=== PATIENT | male | born 1940 | race Caucasian/White ===

== ENCOUNTER → 2016-08-14 | Outpatient (CLI) | payer OTHER, BC ==
[~2016-08-14] MED LIST: ASPI325T39 PO; ATOR-24 PO; BENA10TA10 PO; GLUCTAB7 PO; OMEGCAP2 PO; TRAZ50TA35 PO
[2016-08-14 13:15] LABS: ALT/SGPT 27 U/L (12-78); AST/SGOT 15 U/L (15-37); BLOOD UREA NITROGEN 21 mg/dl (7-18); BUN/CREATININE RATIO 17.3 (10-20); CALCIUM 8.7 mg/dl (8.5-10.1); CARBON DIOXIDE 30 mmol/L (21-32); CHLORIDE 105 mmol/L (98-107); CHOLESTEROL 157 mg/dl (0-200); GLUCOSE 104 mg/dl (70-99); POTASSIUM 3.7 mmol/L (3.5-5.1); SODIUM 141 mmol/L (136-145)
[2016-08-14 13:18] LABS: ALKALINE PHOSPHATASE 93 U/L (45-117); CHOLESTEROL/HDL RATIO 2.3; HDL CHOLESTEROL 69 mg/dl; LDL CHOLESTEROL CALCULATED 73 mg/dl; TRIGLYCERIDES 76 mg/dl (0-150); URIC ACID 7.2 mg/dl (2.6-7.2); VERY LOW DENSITY LIPOPROT CALC 15 mg/dl
[2016-08-14 13:46] LABS: ESTIMATED AVERAGE GLUCOSE 105 mg/dl; HA1C FLAG Normal (Normal)
== END | disposition home or self-care (01) ==
LOC: C.LABPVFM 07:37
PROVIDERS: ATTEND Family Medicine
DX: I10 Essential (primary) hypertension (principal); E78.5 Hyperlipidemia, unspecified; M10.9 Gout, unspecified; R73.01 Impaired fasting glucose

== ENCOUNTER → 2017-02-20 | Outpatient (CLI) | payer OTHER, BC ==
[2017-02-20 12:58] LABS: ALT/SGPT 29 U/L (12-78); BLOOD UREA NITROGEN 24 mg/dl (7-18); BUN/CREATININE RATIO 22.1 (10-20); CALCIUM 9.4 mg/dl (8.5-10.1); CARBON DIOXIDE 27 mmol/L (21-32); CHLORIDE 109 mmol/L (98-107); CHOLESTEROL 159 mg/dl (0-200); GLUCOSE 109 mg/dl (70-99); POTASSIUM 3.9 mmol/L (3.5-5.1); SODIUM 141 mmol/L (136-145); TRIGLYCERIDES 107 mg/dl (0-150); VERY LOW DENSITY LIPOPROT CALC 21 mg/dl
[2017-02-20 13:01] LABS: ALB/GLOB RATIO 0.9 (0.9-2); ALKALINE PHOSPHATASE 98 U/L (45-117); AST/SGOT 21 U/L (15-37); CHOLESTEROL/HDL RATIO 2.8; HDL CHOLESTEROL 57 mg/dl; LDL CHOLESTEROL CALCULATED 81 mg/dl
== END | disposition home or self-care (01) ==
LOC: C.LABPVFM 07:38
PROVIDERS: ATTEND Family Medicine
DX: I10 Essential (primary) hypertension (principal); E78.5 Hyperlipidemia, unspecified; M10.9 Gout, unspecified

== ENCOUNTER 2023-10-19 07:47 | Inpatient (IN) ==
[2023-10-19 08:37] LABS: Bacteria Urine Automated 2+ (None Seen); Epithelial Cell Urine Auto 0-2 /hpf (0-2); WBC Urine Automated >50 /hpf (0-5)
[2023-10-19 08:37] LABS: Albumin Globulin Ratio 1.6 (0.9-2); Albumin Level 4.2 gm/dl (3.4-5.0); BUN Creatinine Ratio 26.5 (10-20); Basophils # (auto) 0.06 K/uL (0.00-0.20); Basophils % (auto) 0.3 %; Bilirubin,Total 1.1 mg/dl (0.2-1.0); Creatinine Clr Calc Pharmacy 67.9 ml/min; Est GFR (African American) 83.5 ml/min; Globulin 2.6 gm/dl (2.5-4.0); Hematocrit (blood only) 42.9 % (42.0-52.0); Hemoglobin 14.1 g/dl (14.0-18.0); Immature Granulocytes # (auto) 0.18 K/uL (0.01-0.20); Lymphocytes # (auto) 0.43 K/uL (1.20-3.40); Lymphocytes % (auto) 2.5 %; Magnesium 1.5 mg/dl (1.7-2.4); Mean Corpuscular Hemoglobin 29.5 pg (25.0-34.0); Mean Corpuscular Hgb Conc 32.9 g/dL (32.0-36.0); Mean Corpuscular Volume 89.7 fL (80.0-100.0); Mean Platelet Volume 8.7 fL (9.4-12.4); Monocytes # (auto) 1.66 K/uL (0.11-0.59); Monocytes % (auto) 9.5 %; Neutrophils # (auto) 15.12 K/uL (1.40-6.50); Neutrophils % (auto) 86.7 %; Platelet Count 165 K/uL (130-400); Potassium 3.7 mmol/L (3.5-5.1); RDW Coefficient of Variation 14.6 % (11.5-14.5); RDW Standard Deviation 48.2 fL (36.4-46.3); Red Blood Count 4.78 M/uL (4.70-6.10); Total Protein 6.8 gm/dl (6.0-8.3); White Blood Count 17.45 K/ul (4.8-10.8)
--- NOTE | 2023-10-19 08:37 | Emergency Department Note ---
Impression & Plan Acute UTI, Leukocytosis, Prostatic mass, Kidney lesion ED Provider Note CHIEF COMPLAINT: Urinary symptoms HISTORY OF PRESENT ILLNESS: This 83-year-old male patient with past medical history of syncope, carotid bruit, impaired glucose, hypertension, hyperlipidemia and elevated PSA presents to the emergency department with complaints of difficulty urinating. The patient states it is somewhat uncomfortable to urinate and he is urinating frequently. He denies any burning or significant pain. He denies any blood in the urine. He has had no fevers, vomiting or diarrhea. Patient denies anything like this happening in the past. He does not believe he seen urology but does follow with a primary care physician regularly. Patient currently denies any significant abdominal pain or pain in the back. REVIEW OF SYSTEMS: A review of systems was performed with positives and pertinent negatives listed in the history of present illness. 10 systems were reviewed and are otherwise negative. ALLERGIES: see below MEDICATIONS: see below PMH: see below SOCIAL HISTORY: see below DDx: UTI, kidney stone, prostatitis, dehydration, diverticulitis, appendicitis among others PHYSICAL EXAM: Vital signs reviewed. General: Well-appearing 83-year-old male, sitting up at the bedside, in no significant distress. HEENT: No scleral icterus, PERRLA, neck supple. moist mucous membranes Cardiovascular: Regular rate and rhythm, no extra sounds. Pulmonary: Clear to auscultation bilaterally, normal work of breathing. Abdomen: Soft, nontender, nondistended, positive bowel sounds. Musculoskeletal: Atraumatic, minimal peripheral edema. Neurologic: Patient awake alert and oriented x 3, speech is clear Skin: Warm, dry, no rash EMERGENCY DEPARTMENT COURSE/MDM: this patient was evaluated and appeared to be in no significant distress. Patient was sitting up at the bedside and ambulatory to the bathroom. He was able to produce a small amount of urine which was sent to the lab for testing. IV access was obtained and laboratory work was drawn. A bladder scan was performed for approximately 50 cc of urine. IV fluids were initiated and the CT scan of the abdomen pelvis was ordered. Laboratory work reveals an elevated WBC, UA is indicative of infection. 2 g of IV ceftriaxone were initiated. Patient was started on IV hydration normal saline solution at 125 cc/h. Vital signs have remained stable and he is afebrile. CT imaging reveals no evidence of obstructive pathology however there is evidence of a 1 cm lesion on the left kidney and 2 cm lesion of the prostate. Patient will be evaluated by the hospitalist service due to UTI, WBC elevation. He was made aware of the findings and the plan and agrees. MONITORING: An order for cardiac monitoring was placed and the patient is noted to be in a NSR at 100 beats per minute. RADIOLOGY: Chest x-ray to my interpretation reveals cardiomegaly without evidence of congestive heart failure. CT imaging of the abdomen pelvis per radiology: IMPRESSION: 1. Prostatomegaly with evidence of chronic bladder outlet obstruction. Correlate with urinalysis to exclude cystitis. 2. There is an equivocal 2 cm lesion involving the left prostate peripheral zone at the level of the mid gland to apex. Correlation with PSA level recommended. 3. 11 mm lesion of the posterior interpolar right kidney. Correlation with follow-up nonemergent renal ultrasound recommended in order to exclude renal cell carcinoma. 4. Colonic diverticulosis. 5. Additional findings as above. EKG:To my interpretation reveals a sinus tachycardia at 102 bpm, right bundle branch block. QTc 490. No PVC, no PAC. Repolarization abnormality. DISPOSITION: Admission Past Med/Surg History Medical History Multiple fractures of ribs of right side Shingles right eye brown to top of his head-nerves were impacted. Sensorineural hearing loss (SNHL) of both ears Shortness of breath on exertion Diverticulosis of colon Surgical History Hx of LASIK History of repair of left rotator cuff History of repair of right rotator cuff History of tooth extraction Hx of colonoscopy Family History Mother COPD (chronic obstructive pulmonary disease) Brother Coronary heart disease COPD (chronic obstructive pulmonary disease) Uncle Cancer Father Prostate cancer Hearing loss Hypertension Other Family history non-contributory No family history of adverse response to anesthesia No family history of bleeding disorder Denies family history of Ovarian cancer Myocardial infarction Breast cancer Colorectal cancer Social History Smoking Status: Never smoker Second Hand Exposure: Yes (in [employer]); Do You Dip or Chew Tobacco: No; Hx Alcohol Use: Yes Alcohol type: beer Alcohol Intake Frequency: Monthly or Less Hx Substance Use: No Preferred Language: Upper Sorbian Communication Ability: Effective Visual Impairment: No Limitations Hearing Ability: Use of Hearing Aid 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 Seatbelt Use: always Sunscreen Use: No Assistive Devices: Hearing Aid - Bilateral Allergies Allergies Allergy/AdvReac Type Severity Reaction Status Date / Time No Known Drug Allergies Allergy Unknown . Verified 10/19/23 09:51 Home Meds Home Medications Medication Instructions Recorded Confirmed aspirin 81 mg tablet,delayed 81 mg PO QAM 02/27/20 10/19/23 release multivitamin 1 tab PO QAM 09/24/23 10/19/23 tamsulosin 0.4 mg capsule 0.4 mg PO QAM 10/19/23 10/19/23 Previous Rx's Medication Instructions Recorded allopurinol 100 mg tablet 100 mg PO QAM #90 tabs 05/02/23 atorvastatin 40 mg tablet 40 mg PO QPM #90 tabs 06/29/23 gabapentin 300 mg capsule 300 mg PO TID PRN neuropathy #90 10/15/23 caps benazepril 10 mg tablet 10 mg PO BID #180 tabs 10/17/23 hydrochlorothiazide 12.5 mg tablet 12.5 mg PO DAILY PRN hypertension 10/17/23 #90 tabs Results & Data (ED) Vital Signs Vital Signs - 24 hr 10/19/23 07:52 10/19/23 07:55 10/19/23 08:30 Temperature 36.8 C Temperature Source Oral Pulse Rate 103 H 103 H 100 H Respiratory Rate 18 23 Respiratory Effort / Characteristics Non-Labored Spontaneous Respiratory Depth Normal Respiratory Pattern Regular Blood Pressure 128/98 99/71 L Blood Pressure Mean 108 80 Pulse Oximetry 92 Oxygen Delivery Method Room Air Sepsis Recent Fever Within 48 Hours No Sepsis New/Unexplained Change in Mental Status No Sepsis Action Taken by Nursing No Action Required 10/19/23 09:37 Temperature Temperature Source Pulse Rate 94 H Respiratory Rate 18 Respiratory Effort / Characteristics Respiratory Depth Respiratory Pattern Blood Pressure 109/73 Blood Pressure Mean 85 Pulse Oximetry 94 Oxygen Delivery Method Sepsis Recent Fever Within 48 Hours Sepsis New/Unexplained Change in Mental Status Sepsis Action Taken by Custodial Medications Current Medication List: was personally reviewed by me Laboratory Data Attestation: I reviewed the patient's lab results. 10/20/23 05:53 10/20/23 05:53 Lab Results 10/19/23 10/19/23 10/19/23 Range/Units 08:00 08:15 10:23 WBC 17.45 H (4.8-10.8) K/ul RBC 4.78 (4.70-6.10) M/uL Hgb 14.1 (14.0-18.0) g/dl Hct 42.9 (42.0-52.0) % MCV 89.7 (80.0-100.0) fL MCH 29.5 (25.0-34.0) pg MCHC 32.9 (32.0-36.0) g/dL RDW Std Deviation 48.2 H (36.4-46.3) fL RDW Coeff of Sharifa 14.6 H (11.5-14.5) % Plt Count 165 (130-400) K/uL MPV 8.7 L (9.4-12.4) fL Immature Gran % (Auto) 1.0 % Neut % (Auto) 86.7 % Lymph % (Auto) 2.5 % Bell % (Auto) 9.5 % Eos % (Auto) 0.0 % Baso % (Auto) 0.3 % Neut # (Auto) 15.12 H (1.40-6.50) K/uL Lymph # (Auto) 0.43 L (1.20-3.40) K/uL Bell # (Auto) 1.66 H (0.11-0.59) K/uL Eos # (Auto) 0.00 (0.00-0.50) K/uL Baso # (Auto) 0.06 (0.00-0.20) K/uL Immature Gran # (Auto) 0.18 (0.01-0.20) K/uL Sodium 141 (136-145) mmol/L Potassium 3.7 (3.5-5.1) mmol/L Chloride 109 H (98-107) mmol/L Carbon Dioxide 24 (21-32) mmol/L Anion Gap 8 (3-11) BUN 26 H (6-23) mg/dl Creatinine 0.98 (0.6-1.4) mg/dl Est Cr Clr Drug Dosing 67.9 ml/min Est GFR ( Amer) 83.5 ml/min Est GFR (Non-Af Amer) 72.0 ml/min BUN/Creatinine Ratio 26.5 H (10-20) Glucose 134 H (70-99(Fasting)) mg/dl Lactate 2.5 H* (0.4-2.0) mmol/L Calcium 9.0 (8.6-10.3) mg/dl Magnesium 1.5 L (1.7-2.4) mg/dl Total Bilirubin 1.1 H (0.2-1.0) mg/dl AST 23 (13-39) U/L ALT 32 (7-52) U/L Alkaline Phosphatase 103 (34-104) U/L Total Protein 6.8 (6.0-8.3) gm/dl Albumin 4.2 (3.4-5.0) gm/dl Globulin 2.6 (2.5-4.0) gm/dl Albumin/Globulin Ratio 1.6 (0.9-2) TSH 0.717 (0.300-4.500) uIu/ml Urine Color Yellow Urine Appearance Cloudy A (Clear) Urine pH 5.5 (4.5-7.5) Ur Specific Bath 1.024 (1.000-1.030) Urine Protein 1+ H (Negative) Urine Glucose (UA) Negative (Negative) Urine Ketones Trace H (Negative) Urine Blood 2+ H (Negative) Urine Nitrite Negative (Negative) Urine Bilirubin Negative (Negative) Urine Urobilinogen Negative (Negative) Ur Leukocyte Esterase 3+ H (Negative) Urine WBC (Auto) >50 H (0-5) /hpf Urine RBC (Auto) 11-20 H (0-2) /hpf U Hyaline Cast (Auto) 3-5 H (0-2) /lpf U Epithel Cells (Auto) 0-2 (0-2) /hpf Urine Bacteria (Auto) 2+ H (None Seen) Administered Medications Atorvastatin Calcium (Atorvastatin 40 Mg Tab) 40 mg PO QPM HUGO Stop: 11/18/23 20:59 Last Admin: 10/19/23 21:01 Dose: 40 mg Documented By: SANDRA Enoxaparin Sodium (Enoxaparin Inj 40 Mg/0.4 Ml Syr) 40 mg SQ Q24H HUGO Stop: 11/18/23 20:59 Last Admin: 10/19/23 21:01 Dose: 40 mg Documented By: SANDRA Gabapentin (Gabapentin 300 Mg Cap) 300 mg PO TID PRN PRN Reason: neuropathy Stop: 11/18/23 13:52 Last Admin: 10/19/23 22:40 Dose: 300 mg Documented By: SANDRA Discontinued Medications Ceftriaxone Sodium (Rocephin) 2,000 mg in 50 mls @ 100 mls/hr IV NOW STA Stop: 10/19/23 09:40 Last Infusion: 10/19/23 09:42 Dose: Infused Documented By: Admin: 10/19/23 09:20 Dose: 100 mls/hr Documented By: Sodium Chloride (Nss) 1,000 mls @ 125 mls/hr IV .Q8H HUGO Stop: 11/18/23 09:14 Last Infusion: 10/19/23 18:07 Dose: Infused Documented By: Infusion: 10/19/23 12:44 Dose: 125 mls/hr Documented By: Infusion: 10/19/23 10:36 Dose: 0 mls/hr Documented By: Admin: 10/19/23 09:39 Dose: 125 mls/hr Documented By: Magnesium Sulfate/Dextrose (Magnesium Sulfate / D5w) 1 gm in 100 mls @ 200 mls/hr IV Q30M HUGO Stop: 10/19/23 10:17 Last Infusion: 10/19/23 11:05 Dose: Infused Documented By: Admin: 10/19/23 10:12 Dose: 200 mls/hr Documented By: Infusion: 10/19/23 10:11 Dose: Infused Documented By: Admin: 10/19/23 09:41 Dose: 200 mls/hr Documented By: Sodium Chloride (Nss) 1,000 mls @ 999 mls/hr IV .Q1H1M ONE Stop: 10/19/23 11:11 Last Infusion: 10/19/23 11:37 Dose: Infused Documented By: Admin: 10/19/23 10:36 Dose: 999 mls/hr Documented By: Sodium Chloride (Nss) 250 mls @ 999 mls/hr IV .Q16M ONE Stop: 10/19/23 10:55 Last Infusion: 10/19/23 11:53 Dose: Infused Documented By: Admin: 10/19/23 11:37 Dose: 999 mls/hr Documented By: LELA Magnesium Sulfate/Dextrose (Magnesium Sulfate / D5w) 1 gm in 100 mls @ 50 mls/hr IV Q2H HUGO Stop: 10/19/23 16:59 Last Infusion: 10/19/23 18:00 Dose: Infused Documented By: Admin: 10/19/23 15:47 Dose: 50 mls/hr Documented By: Infusion: 10/19/23 15:47 Dose: Infused Documented By: Admin: 10/19/23 13:44 Dose: 50 mls/hr Documented By: Infusion: 10/19/23 13:43 Dose: Infused Documented By: Admin: 10/19/23 11:24 Dose: 50 mls/hr Documented By: LELA Parenteral Electrolytes (Plasma-Lyte A Ph 7.4) 1,000 mls @ 999 mls/hr IV .Q1H1M ONE Stop: 10/19/23 17:30 Last Infusion: 10/19/23 21:02 Dose: Infused Documented By: Admin: 10/19/23 18:00 Dose: 999 mls/hr Documented By: ROMAIN Ioversol (Optiray 320 100ml) 94 ml IV ONCE ONE Stop: 10/19/23 09:10 Last Admin: 10/19/23 09:09 Dose: 94 ml Documented By: SEBASTIEN Potassium Chloride (Potassium Chloride Crtab 20 Meq Tabcr) 40 meq PO NOW STA Stop: 10/19/23 10:45 Last Admin: 10/19/23 11:21 Dose: 40 meq Documented By: LELA Tamsulosin HCl (Tamsulosin Hcl 0.4 Mg Cap) 0.4 mg PO NOW ONE Stop: 10/19/23 10:37 Last Admin: 10/19/23 11:21 Dose: 0.4 mg Documented By: LELA Imaging Data Radiologist's Impression: Chest X-Ray 10/19/23 08:14 XR chest 1V portable HISTORY: 83 years-old Male weakness acute weakness COMPARISON: 07/23/2020 TECHNIQUE: AP view of the chest FINDINGS: Cardiomediastinal and hilar silhouettes are unchanged. Mild subsegmental bibasilar densities. There is no pneumothorax, pleural effusion or overt pulmonary edema. Degenerative changes of the shoulders and spine. IMPRESSION: 1. Cardiomegaly without acute process. 2. Mild bibasilar atelectasis. ACT 112: Negative or not required by law. The above report was generated using voice recognition software. It may contain grammatical, syntax or spelling errors. Electronically signed by: Alfa Bright M.D. 10/19/2023 9:07 AM Abdomen/Pelvis CT 10/19/23 08:[address] WITH IV CONTRAST CT DOSE: 1390.32 mGy.cm HISTORY: Acute generalized abdominal pain with possible urinary tract infection. urinary sx , unable to void, bladder empty TECHNIQUE: Multiaxial CT images of the abdomen and pelvis were performed following the IV administration of 94 cc of Optiray, A dose lowering technique was utilized adhering to the principles of ALARA. COMPARISON STUDY: 12/23/2021 FINDINGS: Extensive coronary artery calcifications with cardiomegaly. Bibasilar densities suggest atelectasis versus scarring. No free air. Unremarkable spleen, moderately atrophic pancreas and left adrenal gland. Possible side branch IPMN of the pancreatic body on image 144 measures 8 mm. Coarse calcifications measuring up to approximately 2 cm again noted within the region of the right adrenal gland which are unchanged and likely benign. Unremarkable liver. Patent portal vein. Gallbladder is within normal limits. Scattered hypodense foci of the kidneys suggestive of cysts, several which are too small to characterize. There is an indeterminate 11 mm lesion of the posterior interpolar right kidney on image 157 series 3. No hydronephrosis. Decompressed urinary bladder with circumferential wall thickening and perivesicular stranding. Increased enhancement is noted within the region of the urinary bladder trigone. Heterogeneous prostatomegaly with possible 2.1 cm lesion within the left peripheral zone at the mid gland to apex. Mild nonspecific stranding within the adjacent left hemipelvis.. Atherosclerosis of the aorta and branch vessels. There is no lymphadenopathy identified. Tiny hiatal hernia. No bowel obstruction. Trace perirectal stranding. Colonic diverticulosis. No CT evidence of acute appendicitis. Surgical clips of the scrotum. No acute fracture. IMPRESSION: 1. Prostatomegaly with evidence of chronic bladder outlet obstruction. Correlate with urinalysis to exclude cystitis. 2. There is an equivocal 2 cm lesion involving the left prostate peripheral zone at the level of the mid gland to apex. Correlation with PSA level recommended. 3. 11 mm lesion of the posterior interpolar right kidney. Correlation with follow-up nonemergent renal ultrasound recommended in order to exclude renal cell carcinoma. 4. Colonic diverticulosis. 5. Additional findings as above. ACT 112: Positive. There are findings on this exam that require communication between the performing entity and the patient following Patient Test Result Information Act ([place] Act 112) guidelines. The above report was generated using voice recognition software. It may contain grammatical, syntax or spelling errors. Electronically signed by: Alfa Bright M.D. 10/19/2023 9:50 AM Discharge Plan Visit Data Chief Complaint: Urinary Symptoms ED Provider: Brooke Omer Discharge Problem: Acute UTI, Leukocytosis, Prostatic mass, Kidney lesion Patient Disposition: Admitted As Inpatient Discharge Instructions Interventions: ED Discharge Assessment Last Done: 10/19/23 13:52 Discharge Problem: Leukocytosis Qualifiers: Leukocytosis type: unspecified Qualified Code(s): D72.829 - Elevated white blood cell count, unspecified
[2023-10-19 08:51] LABS: Thyroid Stimulating Hormone 0.717 uIu/ml (0.300-4.500)
--- NOTE | 2023-10-19 09:08 | XRay Report ---
XR chest 1V portable HISTORY: 83 years-old Male weakness acute weakness COMPARISON: 07/23/2020 TECHNIQUE: AP view of the chest FINDINGS: Cardiomediastinal and hilar silhouettes are unchanged. Mild subsegmental bibasilar densities. There i s no pneumothorax, pleural effusion or overt pulmonary edema. Degenerative changes of the shoulders a nd spine. IMPRESSION: 1. Cardiomegaly without acute process. 2. Mild bibasilar atelectasis. ACT 112: Negative or not required by law. The above report was generated using voice recognition software. It may contain grammatical, syntax o r spelling errors. Electronically signed by: Alfa Bright M.D. 10/19/2023 9:07 AM
[2023-10-19] MEDS: OPTIRAY 320 100ml IV ONE (09:09)
[2023-10-19 09:10] LABS: Bilirubin Urine Negative (Negative); Blood Urine 2+ (Negative); Color Urine Yellow; Glucose Urine UA Negative (Negative); Ketones Urine Trace (Negative); Leukocyte Esterase Urine 3+ (Negative); Nitrite Urine Negative (Negative); Protein Urine 1+ (Negative); Specific Gravity Urine 1.024 (1.000-1.030); Urobilinogen Urine Negative (Negative); pH Urine 5.5 (4.5-7.5)
[2023-10-19 09:12] LABS: Appearance Urine Cloudy (Clear)
[2023-10-19] MEDS: cefTRIAXone SODIUM 2,000 MG/50 ML BAG IV STA (09:20)
[2023-10-19] MEDS: SODIUM CHLORIDE 0.9% 1,000 ML IV SCH (09:39)
[2023-10-19] MEDS: MAGNESIUM SULFATE / D5W 1 GM/100 ML BAG IV SCH ×2 (09:41→11:24)
--- NOTE | 2023-10-19 09:52 | CT Scan Report ---
ABDOMEN AND PELVIS CT WITH IV CONTRAST CT DOSE: 1390.32 mGy.cm HISTORY: Acute generalized abdominal pain with possible urinary tract infection. urinary sx , unable to void, bladder empty TECHNIQUE: Multiaxial CT images of the abdomen and pelvis were performed following the IV administrat ion of 94 cc of Optiray, A dose lowering technique was utilized adhering to the principles of ALARA. COMPARISON STUDY: 12/23/2021 FINDINGS: Extensive coronary artery calcifications with cardiomegaly. Bibasilar densities suggest ate lectasis versus scarring. No free air. Unremarkable spleen, moderately atrophic pancreas and left adr enal gland. Possible side branch IPMN of the pancreatic body on image 144 measures 8 mm. Coarse calci fications measuring up to approximately 2 cm again noted within the region of the right adrenal gland which are unchanged and likely benign. Unremarkable liver. Patent portal vein. Gallbladder is within normal limits. Scattered hypodense foci of the kidneys suggestive of cysts, several which are too small to character ize. There is an indeterminate 11 mm lesion of the posterior interpolar right kidney on image 157 ser ies 3. No hydronephrosis. Decompressed urinary bladder with circumferential wall thickening and periv esicular stranding. Increased enhancement is noted within the region of the urinary bladder trigone. Heterogeneous prostatomegaly with possible 2.1 cm lesion within the left peripheral zone at the mid g land to apex. Mild nonspecific stranding within the adjacent left hemipelvis.. Atherosclerosis of the aorta and branch vessels. There is no lymphadenopathy identified. Tiny hiatal hernia. No bowel obstruction. Trace perirectal stranding. Colonic diverticulosis. No CT e vidence of acute appendicitis. Surgical clips of the scrotum. No acute fracture. IMPRESSION: 1. Prostatomegaly with evidence of chronic bladder outlet obstruction. Correlate with urinalysis to e xclude cystitis. 2. There is an equivocal 2 cm lesion involving the left prostate peripheral zone at the level of the mid gland to apex. Correlation with PSA level recommended. 3. 11 mm lesion of the posterior interpolar right kidney. Correlation with follow-up nonemergent mark l ultrasound recommended in order to exclude renal cell carcinoma. 4. Colonic diverticulosis. 5. Additional findings as above. ACT 112: Positive. There are findings on this exam that require communication between the performing entity and the patient following Patient Test Result [place] Act [place] Act 112) guidelines. The above report was generated using voice recognition software. It may contain grammatical, syntax o r spelling errors. Electronically signed by: Alfa Bright M.D. 10/19/2023 9:50 AM
--- NOTE | 2023-10-19 10:22 | History & Physical Report ---
Date of Service October 19, 2023 Assessment & Plan (1) Sepsis: Plan: -Admit to med/tele -Currently stable and non-toxic appearing. -Patient meets sepsis criteria with HR of 103 on arrival, WBC of 17k, and source being his UTI -Unfortunately the patient only received approximately 100 mL NSS between the time of ED arrival and admission >Patient did not have blood cultures or a lactate ordered in the ED >Patient had antibiotics given prior to blood cultures being ordered on admission -Lactate ordered at the time of admission is 2.5 -We will do the following on admission: >Will give the patient 2.25 mL NSS bolus to cover his sepsis bolus based on ideal body weight >Stat blood cultures ordered on admission -Continue ceftriaxone for now as he does not have a hx of resistant organisms -Will hold maintenance fluids following NSS bolus for now as he is non-toxic and hemodynamically stable >Will FU on repeat lactate in 2 hours -PRN tylenol for pain/fever -Will continue his home flomax and give his missed am dose now -Post void residual obtained at the time of admission was 50 cc, continue to monitor for urinary retention moving forward SQ lovenoc for DVT PPX -HH diet with 2 gm sodium restriction -AM CBC, BMP, mag, PT/INR (2) UTI (urinary tract infection): Plan: -Noted on UA today -S/P one dose of Ceftriaxone in the ED -Continue with q24 Ceftriaxone for now -Follow urine/blood cultures (3) Abnormal CT of the abdomen: Plan: -CT of the abd/pelvis w/IV con today noted 2 abnormalities: 1) an equivocal 2 cm lesion involving the left prostate peripheral zone 2) 11 mm lesion of the posterior interpolar right kidney. -Patient denies a previous hx of these findings -Please ensure patient has outpatient Urology referral prior to discharge (4) Hypomagnesemia: Plan: -Noted to be 1.5 today -Potassium is 3.7 -Likely due to HCTZ use -Will give 3 bags of 1gm IV mag-sulfate and 40 meq PO KCL on admission -Monitor daily electrolytes -Monitor on tele for now (5) Hypertension: Plan: -Currently stable -Will hold his HCTZ and Benazepril for now with soft BP's on arrival Plan The patient was discussed with Dr. Blanton at the time of the admission History of Present Illness Chief Complaint: Urinary symptoms Primary Care Provider: Byron Meraz DO Vu is an 83 year old male with a PMH significant for hypertension, hyp ercholesterolemia,RBBB, vasovagal syncope, postherpetic neuralgia, Gout, and and BPH who presented to the [facility] ED on 10/19/23 with complaints of urinary frequency/urgency, abdominal pain and increased confusion. On arrival to the ED he was noted to be mildly hypotensive at 99/71 and tachycardic at 103 but otherwise stable. Labs were significant for a leukocytosis of 17 with neutrophil predominance of 15, BUN of 26, chloride of 109, mag of 1.5, total bili of 1.1, and UA consistent with infection. Chest xray was read as negative for acute findings. CT of the abd/pelvis w/IN con was read as "1. Prostatomegaly with evidence of chronic bladder outlet obstruction. Correlate with urinalysis to exclude cystitis. 2. There is an equivocal 2 cm lesion involving the left prostate peripheral zone at the level of the mid gland to apex. Correlation with PSA level recommended. 3. 11 mm lesion of the posterior interpolar right kidney. Correlation with follow-up nonemergent renal ultrasound recommended in order to exclude renal cell carcinoma. 4. Colonic diverticulosis. 5. Additional findings as above. ". Prior to admission the patient was given a dose of ceftriaxone and was ordered NSS at 125 mL/hr when he arrived to the ED. When clarifying with nursing staff, the patient was never given a fluid bolus prior to admission, only the NSS at 125/hr. At the time of the exam the patient was sitting in bed in no acute distress. He states that he started to develop dysuria, increased urinary frequency, and difficulty urinating last night. He states that these symptoms are new for him, he denies a previous hx of having difficulty voiding. Denies recent fever, chills, cough, chest pain, SOB, nausea/vomiting, current abds pain, diarrhea, hematuria, melena, bloody BM, LE swelling, and recent trauma. Did not have his am meds prior to arrival. Discussed the prostate and right kidney lesions on CT today. Explained that he will need to follow up with Urology outpatient for f urther workup. Is a full code and would want his to make medical decisions for him if he cannot make them himself. Please refer to Dr. Blanton's attestation for any changes to the treatment plan Allergies Allergy/AdvReac Type Severity Reaction Status Date / Time No Known Drug Allergies Allergy Unknown . Verified 10/19/23 09:51 Home Medications Medication Instructions Recorded Confirmed Type aspirin 81 mg tablet,delayed 81 mg PO QAM 02/27/20 10/19/23 History release allopurinol 100 mg tablet 100 mg PO QAM #90 tabs 05/02/23 10/19/23 Rx atorvastatin 40 mg tablet 40 mg PO QPM #90 tabs 06/29/23 10/19/23 Rx multivitamin 1 tab PO QAM 09/24/23 10/19/23 History gabapentin 300 mg capsule 300 mg PO TID PRN neuropathy #90 10/15/23 10/19/23 Rx caps benazepril 10 mg tablet 10 mg PO BID #180 tabs 10/17/23 10/19/23 Rx hydrochlorothiazide 12.5 mg tablet 12.5 mg PO DAILY PRN hypertension 10/17/23 10/19/23 Rx #90 tabs tamsulosin 0.4 mg capsule 0.4 mg PO QAM 10/19/23 10/19/23 History Past Med/Surg History Medical History Multiple fractures of ribs of right side Shingles right eye brown to top of his head-nerves were impacted. Sensorineural hearing loss (SNHL) of both ears Shortness of breath on exertion Diverticulosis of colon Surgical History Hx of LASIK History of repair of left rotator cuff History of repair of right rotator cuff History of tooth extraction Hx of colonoscopy Family History Mother COPD (chronic obstructive pulmonary disease) Brother Coronary heart disease COPD (chronic obstructive pulmonary disease) Uncle Cancer Father Prostate cancer Hearing loss Hypertension Other Family history non-contributory No family history of adverse response to anesthesia No family history of bleeding disorder Denies family history of Ovarian cancer Myocardial infarction Breast cancer Colorectal cancer Social History Smoking Status: Never smoker Second Hand Exposure: Yes (in [employer]); Do You Dip or Chew Tobacco: No; Hx Alcohol Use: Yes Alcohol type: beer Alcohol Intake Frequency: Monthly or Less Hx Substance Use: No Preferred Language: Sinhala Communication Ability: Effective Visual Impairment: No Limitations Hearing Ability: Use of Hearing Aid Alumni Secretary Required: No Beliefs That Will Affect Care: None marital status: Current Living Situation: Spouse current occupational status: retired How many Children do You have: 0 How many Children do You have Comment: Has two step-children Feels Safe at Home: Yes Childhood Exposure to Second-Hand Smoke: No Diet: regular caffeine: Yes (Tea) during the past year weight has: remained stable Dental Care, Regularly: Yes Physical Activity Frequency: Daily 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 Seatbelt Use: always Sunscreen Use: No Assistive Devices: Hearing Aid - Bilateral Physical Exam Physical Exam: Physical Exam: General: In no acute distress, stated age, well-nourished, non-toxic appearing HEENT: Normocephalic, atraumatic, no scleral icterus, pupils around round, s ymmetrical, and reactive to light, dry mucus membranes, trachea midline, no thyromegaly Chest/Pulm: No respiratory distress, symmetrical chest expansion, clear breath sounds throughout Cardiac: RRR, no murmurs noted Abdomen: Negative for ascites and bruising, normoactive bowel sounds, soft, non-tender to palpation throughout : Negative CVA tenderness BL Musculoskeletal: Symmetrical and without signs of acute trauma, upper and lower extremities with full ROM, no atrophy, spasticity, or flaccidity Extremities: Radial, dorsalis pedis, and posterior tibial pulses are intact and symmetrical, no edema noted in the BL LE's Skin: Warm, dry, no rashes , lesions, or scars noted Neuro: Alert and oriented to person, place, month, year, and president, no focal defects, no tremors noted Psych: No acute distress, calm and cooperative during the exam Results & Data Results & Data Vital Signs (Past 12 Hours) Vital Signs Temp Pulse Resp BP Pulse Ox O2 Del Method 10/19/23 09:37 94 H 18 109/73 94 10/19/23 08:30 100 H 23 99/71 L 10/19/23 07:55 103 H 10/19/23 07:52 36.8 C 103 H 18 128/98 92 Room Air Laboratory Results Abnormal lab results 10/19/23 10/19/23 10/19/23 Range/Units 08:00 08:15 10:23 WBC 17.45 H (4.8-10.8) K/ul RDW Std Deviation 48.2 H (36.4-46.3) fL RDW Coeff of Sharifa 14.6 H (11.5-14.5) % MPV 8.7 L (9.4-12.4) fL Neut # (Auto) 15.12 H (1.40-6.50) K/uL Lymph # (Auto) 0.43 L (1.20-3.40) K/uL Wilcox # (Auto) 1.66 H (0.11-0.59) K/uL Chloride 109 H (98-107) mmol/L BUN 26 H (6-23) mg/dl BUN/Creatinine Ratio 26.5 H (10-20) Glucose 134 H (70-99(Fasting)) mg/dl Lactate 2.5 H* (0.4-2.0) mmol/L Magnesium 1.5 L (1.7-2.4) mg/dl Total Bilirubin 1.1 H (0.2-1.0) mg/dl Urine Appearance Cloudy A (Clear) Urine Protein 1+ H (Negative) Urine Ketones Trace H (Negative) Urine Blood 2+ H (Negative) Ur Leukocyte Esterase 3+ H (Negative) Urine WBC (Auto) >50 H (0-5) /hpf Urine RBC (Auto) 11-20 H (0-2) /hpf U Hyaline Cast (Auto) 3-5 H (0-2) /lpf Urine Bacteria (Auto) 2+ H (None Seen) Diagnostic Findings Chest X-Ray 10/19/23 08:14 XR chest 1V portable HISTORY: 83 years-old Male weakness acute weakness COMPARISON: 07/23/2020 TECHNIQUE: AP view of the chest FINDINGS: Cardiomediastinal and hilar silhouettes are unchanged. Mild subsegmental bibasilar densities. There is no pneumothorax, pleural effusion or overt pulmonary edema. Degenerative changes of the shoulders and spine. IMPRESSION: 1. Cardiomegaly without acute process. 2. Mild bibasilar atelectasis. ACT 112: Negative or not required by law. The above report was generated using voice recognition software. It may contain grammatical, syntax or spelling errors. Electronically signed by: Alfa Bright M.D. 10/19/2023 9:07 AM Abdomen/Pelvis CT 10/19/23 08:[address] WITH IV CONTRAST CT DOSE: 1390.32 mGy.cm HISTORY: Acute generalized abdominal pain with possible urinary tract infection. urinary sx , unable to void, bladder empty TECHNIQUE: Multiaxial CT images of the abdomen and pelvis were performed following the IV administration of 94 cc of Optiray, A dose lowering technique was utilized adhering to the principles of ALARA. COMPARISON STUDY: 12/23/2021 FINDINGS: Extensive coronary artery calcifications with cardiomegaly. Bibasilar densities suggest atelectasis versus scarring. No free air. Unremarkable spleen, moderately atrophic pancreas and left adrenal gland. Possible side branch IPMN of the pancreatic body on image 144 measures 8 mm. Coarse calcifications measuring up to approximately 2 cm again noted within the region of the right adrenal gland which are unchanged and likely benign. Unremarkable liver. Patent portal vein. Gallbladder is within normal limits. Scattered hypodense foci of the kidneys suggestive of cysts, several which are too small to characterize. There is an indeterminate 11 mm lesion of the posterior interpolar right kidney on image 157 series 3. No hydronephrosis. Decompressed urinary bladder with circumferential wall thickening and perivesicular stranding. Increased enhancement is noted within the region of the urinary bladder trigone. Heterogeneous prostatomegaly with possible 2.1 cm lesion within the left peripheral zone at the mid gland to apex. Mild nonsp ecific stranding within the adjacent left hemipelvis.. Atherosclerosis of the aorta and branch vessels. There is no lymphadenopathy identified. Tiny hiatal hernia. No bowel obstruction. Trace perirectal stranding. Colonic diverticulosis. No CT evidence of acute appendicitis. Surgical clips of the scrotum. No acute fracture. IMPRESSION: 1. Prostatomegaly with evidence of chronic bladder outlet obstruction. Correlate with urinalysis to exclude cystitis. 2. There is an equivocal 2 cm lesion involving the left prostate peripheral zone at the level of the mid gland to apex. Correlation with PSA level recommended. 3. 11 mm lesion of the posterior interpolar right kidney. Correlation with follow-up nonemergent renal ultrasound recommended in order to exclude renal cell carcinoma. 4. Colonic diverticulosis. 5. Additional findings as above. ACT 112: Positive. There are findings on this exam that require communication between the performing entity and the patient following Patient Test Result Information Act ([place] Act 112) guidelines. The above report was generated using voice recognition software. It may contain grammatical, syntax or spelling errors. Electronically signed by: Alfa Bright M.D. 10/19/2023 9:50 AM ECG Additional Comments: Sinus tachycardia Right bundle branch block T wave abnormality, consider inferior ischemia Abnormal ECG When compared with ECG of 23-DEC-2021 11:48, Premature ventricular complexes are no longer Present T wave inversion more evident in Anterior leads Code Status & VTE Plan Code Status Full code VTE Prophylaxis Plan VTE Prophylaxis will be ordered: Yes Supervising Physician Co-Signing Physician Notes I personally saw and examined the patient. I verified all velasco points and agree with Rafael Franklin PA-C with the following exceptions and/or additions: 83 year old male presents to the ER with dysuria and increased confusion started yesterday. O/E A&Ox3, HS increased rate, regular rhythm, no murmurs, Chest CTAB, Abdo SNT, no CVA tenderness A/P UTI Sepsis - IV ceftriaxone, follow up blood and urine cultures, complete sepsis bolus with Plasma-Lyte 1L bolus Follow up with urology regarding lesions found on CT PG Care Time/CCT Total # of Minutes Spent Total Time Spent with Patient: Total time spent is greater than 50% in coordination of care (as documented) at patient's floor/unit and/or counseling patient: Coding [place] [address] INT INP/OBS CARE 3/75MIN Patient Type Established Medical Decision Making High Complexity Diagnoses Sepsis A41.9 UTI (urinary tract infection) N39.[address] of the abdomen R93.5 Hypomagnesemia E83.42 Hypertension I10
[2023-10-19] MEDS ORDERED: ACETAMINOPHEN 325 MG TAB PO PRN (10:33)
[2023-10-19] MEDS: SODIUM CHLORIDE 0.9% 1,000 ML IV ONE (10:36)
[2023-10-19] MEDS: POTASSIUM CHLORIDE CRTAB 20 MEQ TABCR PO STA (11:21)
[2023-10-19] MEDS: TAMSULOSIN HCL 0.4 MG CAP PO ONE (11:21)
[2023-10-19] MEDS: SODIUM CHLORIDE 0.9% 250 ML IV ONE (11:37)
[2023-10-19] MEDS: PLASMA-LYTE A 1,000 ML IV ONE (18:00)
[2023-10-19] MEDS: ENOXAPARIN INJ 40 MG/0.4 ML SYR SQ SCH (21:01)
[2023-10-19] MEDS: ATORVASTATIN 40 MG TAB PO SCH (21:01)
[2023-10-19] MEDS: GABAPENTIN 300 MG CAP PO PRN (22:40)
[2023-10-20 06:35] LABS: Basophils # (auto) 0.03 K/uL (0.00-0.20); Basophils % (auto) 0.2 %; Eosinophils # (auto) 0.06 K/uL (0.00-0.50); Eosinophils % (auto) 0.4 %; Hematocrit (blood only) 38.3 % (42.0-52.0); Hemoglobin 12.9 g/dl (14.0-18.0); Immature Granulocytes # (auto) 0.18 K/uL (0.01-0.20); Immature Granulocytes % (auto) 1.1 %; Lymphocytes # (auto) 0.81 K/uL (1.20-3.40); Lymphocytes % (auto) 4.8 %; Mean Corpuscular Hgb Conc 33.7 g/dL (32.0-36.0); Mean Corpuscular Volume 89.1 fL (80.0-100.0); Mean Platelet Volume 8.9 fL (9.4-12.4); Monocytes # (auto) 1.26 K/uL (0.11-0.59); Monocytes % (auto) 7.5 %; Neutrophils # (auto) 14.41 K/uL (1.40-6.50); Platelet Count 149 K/uL (130-400); RDW Standard Deviation 48.7 fL (36.4-46.3); White Blood Count 16.75 K/ul (4.8-10.8)
[2023-10-20 06:52] LABS: INR 1.1 (0.9-1.1); Prothrombin Time 11.4 Seconds (9.0-12.0)
[2023-10-20 07:02] LABS: BUN Creatinine Ratio 21.8 (10-20); Est GFR (African American) 93.8 ml/min; Est GFR (Non-African American) 80.9 ml/min; Magnesium 2.1 mg/dl (1.7-2.4); Potassium 3.9 mmol/L (3.5-5.1)
[2023-10-20] MEDS: cefTRIAXone SODIUM 2,000 MG/50 ML BAG IV SCH (08:42)
[2023-10-20] MEDS: ASPIRIN 81 MG ECTAB PO SCH (08:43)
[2023-10-20] MEDS: allopurinoL 100 MG TAB PO SCH (08:43)
[2023-10-20] MEDS: TAMSULOSIN HCL 0.4 MG CAP PO SCH (08:43)
--- NOTE | 2023-10-20 17:06 | Hospitalist Progress Note ---
Date of Service October 20, 2023 Assessment & Plan (1) Sepsis: Plan: -Admit to med/tele -Currently stable and non-toxic appearing. -Patient meets sepsis criteria with HR of 103 on arrival, WBC of 17k, and source being his UTI -Unfortunately the patient only received approximately 100 mL NSS between the time of ED arrival and admission >Patient did not have blood cultures or a lactate ordered in the ED >Patient had antibiotics given prior to blood cultures being ordered on admission -Lactate ordered at the time of admission is 2.5 -We will do the following on admission: >Will give the patient 2.25 mL NSS bolus to cover his sepsis bolus based on ideal body weight >Stat blood cultures ordered on admission -Continue ceftriaxone for now as he does not have a hx of resistant organisms -Will hold maintenance fluids following NSS bolus for now as he is non-toxic and hemodynamically stable >Will FU on repeat lactate in 2 hours -PRN tylenol for pain/fever -Will continue his home flomax and give his missed am dose now -Post void residual obtained at the time of admission was 50 cc, continue to monitor for urinary retention moving forward SQ loveno for DVT PPX -HH diet with 2 gm sodium restriction -AM CBC, BMP, mag, PT/INR ON 10/19 Patient symptoms have improved. Vitals have also stabilzed. Concern about his cultures being negative. Will monitor. (2) UTI (urinary tract infection): Plan: -Noted on UA today -S/P one dose of Ceftriaxone in the ED -Continue with q24 Ceftriaxone for now -Follow urine/blood cultures (3) Abnormal CT of the abdomen: Plan: -CT of the abd/pelvis w/IV con today noted 2 abnormalities: 1) an equivocal 2 cm lesion involving the left prostate peripheral zone 2) 11 mm lesion of the posterior interpolar right kidney. -Patient denies a previous hx of these findings -Please ensure patient has outpatient Urology referral prior to discharge (4) Hypomagnesemia: Plan: -Noted to be 1.5 today -Potassium is 3.7 -Likely due to HCTZ use -Will give 3 bags of 1gm IV mag-sulfate and 40 meq PO KCL on admission -Monitor daily electrolytes -Monitor on tele for now (5) Hypertension: Plan: -Currently stable -Will hold his HCTZ and Benazepril for now with soft BP's on arrival Plan The patient was discussed with Dr. Blanton at the time of the admission Admission and Anticipated Discharge Date Admission Date: October 19, 2023 Subjective Patient reports feeling better. Patient continues to have some symptoms of incontinence. Review of Systems Review of Systems: All systems reviewed & are unremarkable except as noted in HPI & below Physical Exam Physical Exam: General: In no acute distress, stated age, well-nourished, non-toxic appearing HEENT: Normocephalic, atraumatic Chest/Pulm: No respiratory distress, symmetrical chest expansion, clear breath sounds throughout Cardiac: RRR, no murmurs noted Abdomen: Negative for ascites and bruising, normoactive bowel sounds, soft, non-tender to palpation throughout : Negative CVA tenderness BL Musculoskeletal: Symmetrical and without signs of acute trauma, upper and lower extremities with full ROM, no atrophy, spasticity, or flaccidity Extremities: Radial, dorsalis pedis, and posterior tibial pulses are intact and symmetrical, no edema noted in the BL LE's Skin: Warm, dry, no rashes , lesions, or scars noted Neuro: Alert and oriented to person, place, month, year, Results & Data Results & Data Vital Signs (Past 12 Hours) Vital Signs Temp Pulse Pulse Resp BP Pulse Ox O2 Del Method 10/20/23 15:08 90 10/20/23 14:51 37.0 C 89 20 156/89 H 95 Room Air 10/20/23 11:54 91 H 22 165/96 H 97 Room Air 10/20/23 07:31 37.0 C 87 18 133/83 94 Room Air 10/20/23 07:30 86 PG Care Time/CCT Total # of Minutes Spent Total Time Spent with Patient: Total time spent is greater than 50% in coordination of care (as documented) at patient's floor/unit and/or counseling patient: Coding Level of Care Code 42921 SUB INP/OBS CARE 2/35MIN Diagnoses Sepsis A41.9 UTI (urinary tract infection) N39.[address] of the abdomen R93.5 Hypomagnesemia E83.42 Hypertension I10
[2023-10-21 06:11] LABS: Basophils # (auto) 0.02 K/uL (0.00-0.20); Basophils % (auto) 0.2 %; Eosinophils # (auto) 0.07 K/uL (0.00-0.50); Eosinophils % (auto) 0.6 %; Hematocrit (blood only) 37.2 % (42.0-52.0); Hemoglobin 12.6 g/dl (14.0-18.0); Immature Granulocytes # (auto) 0.07 K/uL (0.01-0.20); Immature Granulocytes % (auto) 0.6 %; Lymphocytes # (auto) 0.82 K/uL (1.20-3.40); Lymphocytes % (auto) 6.7 %; Mean Corpuscular Hemoglobin 30.4 pg (25.0-34.0); Mean Corpuscular Hgb Conc 33.9 g/dL (32.0-36.0); Mean Corpuscular Volume 89.6 fL (80.0-100.0); Mean Platelet Volume 9.1 fL (9.4-12.4); Monocytes # (auto) 1.12 K/uL (0.11-0.59); Monocytes % (auto) 9.2 %; Neutrophils # (auto) 10.07 K/uL (1.40-6.50); Neutrophils % (auto) 82.7 %; Platelet Count 146 K/uL (130-400); RDW Coefficient of Variation 15.1 % (11.5-14.5); RDW Standard Deviation 49.3 fL (36.4-46.3); Red Blood Count 4.15 M/uL (4.70-6.10); White Blood Count 12.17 K/ul (4.8-10.8)
[2023-10-21 06:25] LABS: BUN Creatinine Ratio 16.7 (10-20); Calcium 8.1 mg/dl (8.6-10.3); Creatinine Clr Calc Pharmacy 78.5 ml/min; Est GFR (African American) 95.2 ml/min; Est GFR (Non-African American) 82.1 ml/min; Magnesium 1.9 mg/dl (1.7-2.4); Potassium 3.9 mmol/L (3.5-5.1)
--- NOTE | 2023-10-21 09:37 | Discharge Summary ---
Date of Service October 21, 2023 Admission HPI Per Admitting Provider Vu is an 83 year old male with a PMH significant for hypertension, hypercholesterolemia,RBBB, vasovagal syncope, postherpetic neuralgia, Gout, and and BPH who presented to the [facility] ED on 10/19/23 with complaints of urinary frequency/urgency, abdominal pain and increased confusion. On arrival to the ED he was noted to be mildly hypotensive at 99/71 and tachycardic at 103 but otherwise stable. Labs were significant for a leukocytosis of 17 with neutrophil predominance of 15, BUN of 26, chloride of 109, mag of 1.5, total bili of 1.1, and UA consistent with infection. Chest xray was read as negative for acute findings. CT of the abd/pelvis w/IN con was read as "1. Prostatomegaly with evidence of chronic bladder outlet obstruction. Correlate with urinalysis to exclude cystitis. 2. There is an equivocal 2 cm lesion involving the left prostate peripheral zone at the level of the mid gland to apex. Correlation with PSA level recommended. 3. 11 mm lesion of the posterior interpolar right kidney. Correlation with follow-up nonemergent renal ultrasound recommended in order to exclude renal cell carcinoma. 4. Colonic diverticulosis. 5. Additional findings as above. ". Prior to admission the patient was given a dose of ceftriaxone and was ordered NSS at 125 mL/hr when he arrived to the ED. When clarifying with nursing staff, the patient was never given a fluid bolus prior to admission, only the NSS at 125/hr. At the time of the exam the patient was sitting in bed in no acute distress. He states that he started to develop dysuria, increased urinary frequency, and difficulty urinating last night. He states that these symptoms are new for him, he denies a previous hx of having difficulty voiding. Denies recent fever, chills, cough, chest pain, SOB, nausea/vomiting, current abds pain, diarrhea, hematuria, melena, bloody BM, LE swelling, and recent trauma. Did not have his am meds prior to arrival. Discussed the prostate and right kidney lesions on CT today. Explained that he will need to follow up with Urology outpatient for further workup. Is a full code and would want his to make medical decisions for him if he cannot make them himself. Principal Diagnosis uti (sepsis) Discharge Exam General: In no acute distress, stated age, well-nourished, non-toxic appearing HEENT: Normocephalic, atraumatic Chest/Pulm: No respiratory distress, symmetrical chest expansion, clear breath sounds throughout Cardiac: RRR, no murmurs noted Abdomen: Negative for ascites and bruising, normoactive bowel sounds, soft, non-tender to palpation throughout : Negative CVA tenderness BL Musculoskeletal: Symmetrical and without signs of acute trauma, upper and lower extremities with full ROM, no atrophy, spasticity, or flaccidity Extremities: Radial, dorsalis pedis, and posterior tibial pulses are intact and symmetrical, no edema noted in the BL LE's Skin: Warm, dry, no rashes , lesions, or scars noted Neuro: Alert and oriented to person, place, month, year, Discharge Data Allergies Allergy/AdvReac Type Severity Reaction Status Date / Time No Known Drug Allergies Allergy Unknown . Verified 10/19/23 09:51 Consultations 10/19/23 10:21 ED Decision to Admit Stat Ordered Studies 10/19/23 08:26 CT abd pelvis IV con only Stat Hospital Course (1) Sepsis: -Admit to med/tele -Currently stable and non-toxic appearing. -Patient meets sepsis criteria with HR of 103 on arrival, WBC of 17k, and source being his UTI -CUltures showed pansensitive E. coli. -Lactate ordered at the time of admission is 2.5 -Treated with ceftriaxone Vitals improved and blood work also improved. Patient was discharged on 10/20 to complete outpatient oral antibiotic regimen (2) UTI (urinary tract infection): -Noted on UA today -S/P one dose of Ceftriaxone in the ED -Continue with q24 Ceftriaxone for now -Follow urine/blood cultures (3) Abnormal CT of the abdomen: -CT of the abd/pelvis w/IV con today noted 2 abnormalities: 1) an equivocal 2 cm lesion involving the left prostate peripheral zone 2) 11 mm lesion of the posterior interpolar right kidney. -Patient denies a previous hx of these findings -Patient will need outpatient Urology (4) Hypomagnesemia: -Noted to be 1.5 today -Potassium is 3.7 -Likely due to HCTZ use -replaced. (5) Hypertension: -Currently stable Total Time Total Time Spent Total Time Spent (In Minutes): 32 Discharge Plan Discharge Items Patient Disposition: Home - Self-Care Reason For Visit: SEPSIS, UTI Discharge Diagnosis: sepsis Activity: Resume your previous activity Non-emergency contact: Primary Care Provider Call non-emergency contact if: you have any medication questions Follow-up/Referrals: Byron Meraz, [Primary Care Provider] - 10/29/23 10:30 am Diet: Heart Healthy Addtl Attending Provider Instructions: Good morning Mr. Silva, We found a urinary tract infection. Thankfully the bacteria is E. coli. And this was sensitive to all antibiotics. We can transition to an oral antibiotic. This you will start tomorrow in the morning and take it for 5 more days. I also ordered probiotics for you. You will take these once a day During your visit here, we found nodules on your prostate and your kidney. We will ensure Urology sees you as an outpatient to discuss and manage these findings. It was a pleasure to take care of you Pending Studies at Discharge: No Stand-Alone Forms: My [facility], Smoking Cessation Medications and DC Order Prescriptions: New cefpodoxime 200 mg tablet 200 mg PO BID Qty: 10 0RF Rx Instructions: must administer with a meal/food Probiotic 3 billion cell capsule 3,000 mmu cells PO DAILY Qty: 5 0RF Rx Instructions: administer with a meal Continued allopurinol 100 mg tablet 100 mg PO QAM Qty: 90 3RF atorvastatin 40 mg tablet 40 mg PO QPM Qty: 90 3RF gabapentin 300 mg capsule 300 mg PO TID PRN (Reason: neuropathy) Qty: 90 11RF benazepril 10 mg tablet 10 mg PO BID Qty: 180 3RF hydrochlorothiazide 12.5 mg tablet 12.5 mg PO DAILY PRN (Reason: hypertension) Qty: 90 3RF Rx Instructions: prn systolic BP > 140 multivitamin Tablet 1 tab PO QAM aspirin 81 mg tablet,delayed release (DR/EC) 81 mg PO QAM tamsulosin 0.4 mg capsule 0.4 mg PO QAM Discharge Orders: Discharge Order (Routine); Ordered 10/21/23 Ordered By: Román Browne Admission Data Admit Date/Time: 10/19/23 10:24 Attending Provider: Román Browne Admit Provider: Albin Blanton Primary Care Provider: Byron Meraz Other Interventions: Discharge Summary Assessment (RN) Last Done: 10/21/23 10:30 Coding Level of Care Code 87858 INP/OBS DISCH >30 MIN Diagnoses Sepsis A41.9 UTI (urinary tract infection) N39.[address] of the abdomen R93.5 Hypomagnesemia E83.42 Hypertension I10
--- NOTE | 2023-10-21 21:43 | Electrocardiogram Report ---
Test Reason : Blood Pressure : / mmHG Vent. Rate : 102 BPM Atrial Rate : 102 BPM P-R Int : 142 ms QRS Dur : 158 ms QT Int : 376 ms P-R-T Axes : 031 004 002 degrees QTc Int : 490 ms Sinus tachycardia Right bundle branch block T wave abnormality, consider inferior ischemia Abnormal ECG When compared with ECG of 23-DEC-2021 11:48, Premature ventricular complexes are no longer Present T wave inversion more evident in Anterior leads Confirmed by Levi Blankenship ([id number]) on 10/21/2023 9:42:28 PM Referred By: Confirmed By:Levi Blankenship
== END 2023-10-21 12:12 | disposition home or self-care (01) | DRG 872 ==
LOC: ED 07:47 → EDINP 10:24 → SUATTDRO 10:24 → 2N 13:52
DX: E83.42 Hypomagnesemia; Z79.899 Other long term (current) drug therapy; Z79.82 Long term (current) use of aspirin; I10 Essential (primary) hypertension; Z80.42 Family history of malignant neoplasm of prostate; M10.9 Gout, unspecified; B02.29 Other postherpetic nervous system involvement; R93.49 Abnormal radiologic findings on diagnostic imaging of other urinary organs; T50.2X5A Adverse effect of carbonic-anhydrase inhibitors, benzothiadiazides and other diuretics, initial encounter; R93.421 Abnormal radiologic findings on diagnostic imaging of right kidney; N40.1 Benign prostatic hyperplasia with lower urinary tract symptoms; N39.0 Urinary tract infection, site not specified; A41.9 Sepsis, unspecified organism; E78.00 Pure hypercholesterolemia, unspecified